=== PATIENT | female | born 1950 | race Caucasian/White ===

== ENCOUNTER 2018-03-09 06:41 | Inpatient (IN) | payer MEDICARE ==
[2018-03-06 16:54] VITALS: BMI 23.3
[2018-03-09] MEDS ORDERED: CEFAZOLIN/Water 2 GM/20 ML SYRINGE ONE (07:04)
[2018-03-09 07:19] LABS: #Basophils 0.1 thou/uL (0.0-0.2); #Eosinphils 0.2 thou/uL (0.0-0.7); #Lymphocytes 1.3 thou/uL (1.20-3.40); #Monocytes 0.7 thou/uL (0.11-0.59); #Neutrophils 4.6 thou/uL (1.40-6.50); %Basophils 0.8 % (0.0-1.0); %Eosinophils 2.3 % (0.0-10.0); %Lymphocytes 18.6 % (21.0-51.0); %Monocytes 9.7 % (0.0-10.0); %Neutrophils 68.6 % (42.0-75.0); Hemoglobin 13.1 g/dL (12.0-16.0); Mean Corpuscular HGB CONC 32.4 g/dL (32.0-36.0); Mean Corpuscular Hemoglobin 32.5 pg (27.0-31.0); Mean Platelet Volume 7.2 fL (7.4-10.4); Platelet Count 281 thou/uL (130-400); Red Blood Cell (RBC) Count 4.04 mill/uL (4.20-5.40); White Blood Cell (WBC) Count 6.8 thou/uL (4.8-10.8)
[2018-03-09 07:42] LABS: Anion Gap 12 mmol/L (10-20); BUN (Urea Nitrogen) 20 mg/dL (9.8-20.1); Calc. Creatinine Clearance 79 mL/min (70-130); Calcium 9.5 mg/dL (7.8-10.44); Carbon Dioxide 30 mmol/L (23-31); Chloride 103 mmol/L (98-107); Estimated GFR-MDRD 79; Glucose 107 mg/dL (80-115); Potassium 3.8 mmol/L (3.5-5.1); Sodium 141 mmol/L (136-145)
[2018-03-09] MEDS ORDERED: Sodium Chloride 0.9% 10 ML ONE (08:56)
[2018-03-09] MEDS ORDERED: Fentanyl 250 MCG/5 ML VIAL ONE (09:13)
[2018-03-09] MEDS ORDERED: Midazolam HCl 2 mg/2 ml Vial ONE (09:13)
[2018-03-09] MEDS ORDERED: Promethazine HCl 25 MG/ML VIAL SLOW IVP PRN (10:40)
[2018-03-09] MEDS ORDERED: HYDROmorphone 2 MG/ML VIAL SLOW IVP PRN (10:40)
[2018-03-09] MEDS ORDERED: Promethazine HCl 25 MG/ML VIAL IM PRN ×2 (10:40→14:05)
[2018-03-09] MEDS ORDERED: Ondansetron HCl/PF 4 MG/2 ML Vial IVP PRN (10:40)
[2018-03-09] MEDS ORDERED: Fentanyl 100 MCG/2 ML VIAL ONE ×2 (10:49→11:13)
--- NOTE | 2018-03-09 11:02 | OP ---
DATE OF PROCEDURE: 03/09/2018 SURGEON: Leo Sultana M.D. CERTIFIED PROSTHETIST: Asa Barfield PA-C PROCEDURE: Left L4-5 laminectomy, facetectomy, foraminotomy, interbody arthrodesis, intravertebral b iomechanical device, local morselized autograft, demineralized bone matrix, posterior lateral arthrod esis L4-5, pedicle screw instrumentation, demineralized bone matrix, and local morselized autograft. PROCEDURE IN DETAIL: The patient was brought to the operating room and intubated. She was rolled in the prone position on gel-filled chest rolls. Incision made exposing L4 and L5 and our level was co nfirmed by x-ray. We found the anticipated posterior synovial cyst which was debrided. We performed left L4-5 laminectomy, facetectomy, and foraminotomy, completely decompressed the lateral recess and the neural foramen at this level. We then debrided the intervertebral disk and the bony endplates w ere decorticated for purpose of arthrodesis. Appropriately sized intravertebral biomechanical PEEK d evice was brought into the field, filled with demineralized bone matrix, local morselized autograft, and tapped into place securely at L4-5. Next, pedicle screws were placed at left L4 and left L5 usin g lateral fluoroscopic guidance and positioning was confirmed with x-ray. Bryan was secured between th e screws, connected by nuts which were final tightened. The wound was then extensively irrigated, im maculate hemostasis was secured. Vancomycin powder was applied and the wound was closed in anatomic layers.
[2018-03-09] MEDS ORDERED: HYDROmorphone 2 MG/ML VIAL ONE (11:29)
[2018-03-09] MEDS ORDERED: PHENYLEPHRINE-NS 100 MCG/ML 10 ML SYRINGE ONE (12:29)
[2018-03-09] MEDS ORDERED: Lidocaine 1% PF 5 ML VIAL ONE (12:29)
[2018-03-09] MEDS ORDERED: PROPOFOL 200 MG/20 ML VIAL ONE (12:29)
[2018-03-09] MEDS ORDERED: Ondansetron HCl/PF 4 MG/2 ML Vial ONE (12:29)
[2018-03-09] MEDS ORDERED: Succinylcholine Chloride 20 MG/ML 10 ml SYRINGE FS ONE (12:29)
[2018-03-09] MEDS ORDERED: Glycopyrrolate 0.2 MG/ML 5 ML SYRINGE ONE (12:29)
[2018-03-09] MEDS ORDERED: Dexamethasone 20 MG/5 ML VIAL ONE (12:29)
[2018-03-09] MEDS ORDERED: Promethazine 25 MG TAB PO PRN (14:05)
[2018-03-09] MEDS ORDERED: diphenhydrAMINE 50 MG/ML VIAL IVP PRN (14:05)
[2018-03-09] MEDS ORDERED: diphenhydrAMINE 25 MG CAP PO PRN (14:05)
[2018-03-09] MEDS ORDERED: HYDROcodone/Acetaminophen 10/325 mg Tablet PO PRN ×2 (14:05)
[2018-03-09] MEDS ORDERED: Ondansetron HCl/PF 4 MG/2 ML Vial IM PRN (14:05)
[2018-03-09] MEDS ORDERED: Milk Of Magnesia 30 ML UDCUP PO PRN (14:05)
[2018-03-09] MEDS ORDERED: Mag-Al 1200 mg/1200 mg/30 ML UDCUP PO PRN (14:05)
[2018-03-09] MEDS ORDERED: traMADol HCl 50 MG TAB PO PRN (14:05)
[2018-03-09] MEDS ORDERED: Promethazine HCl 12.5 MG SUPP PR PRN (14:05)
[2018-03-09] MEDS ORDERED: Morphine 4 MG/ML VIAL SLOW IVP PRN (14:11)
[2018-03-09] MEDS ORDERED: Refresh (Polyvinyl Alcohol 1.4%/Povidone 0.6%) Opth Drops EA EYE PRN (14:14)
[2018-03-09] MEDS: Sodium Chloride 0.9% 1,000 ML IV SCH (14:26)
[2018-03-10] MEDS: Sodium Chloride 0.9% 1,000 ML IV SCH (02:36)
--- NOTE | 2018-03-10 07:00 | DIS ---
DATE OF ADMISSION: 03/09/2018 DATE OF DISCHARGE: 03/10/2018 DISCHARGE SUMMARY: Patient is a 67-year-old female status post left L4-L5 decompression and fusion, postoperative day #1. Postoperative course was complicated by some initial nausea, vomiting during h er recovery. This improved during her admission course with Zofran and Phenergan. She is now tolera ting her diet, she is voiding appropriately, and her pain is well controlled with p.o. medications. She has been up ambulating easily to the bathroom. I examined her back and her dressing remains dry. We will plan dismiss the patient home later today. I have provided prescriptions for tramadol, Jim aflex, Keflex, and Phenergan. I discussed home care and precautions. We will plan to follow up with the patient in 2 weeks in the office.
[2018-03-10] MEDS: traMADol HCl 50 MG TAB PO PRN ×2 (08:46→14:42)
[2018-03-10] MEDS: tiZANidine HCl 4 MG TAB PO PRN ×2 (08:47→14:42)
[2018-03-10] MEDS ORDERED: valACYclovir HCl 1 GM TAB PO SCH (09:00)
[2018-03-10] MEDS ORDERED: Lorazepam 0.5 MG TAB PO SCH (09:00)
[2018-03-10] MEDS ORDERED: Calcium Carbonate + Vit D 1 TAB PO SCH (09:00)
[2018-03-10] MEDS ORDERED: BIFIDOBACTERIUM PO SCH ×2 (09:00)
[2018-03-10] MEDS ORDERED: DULoxetine 30 MG CAP PO SCH (09:00)
[2018-03-10] MEDS ORDERED: valACYclovir 500 MG TAB PO SCH (09:00)
[2018-03-10] MEDS ORDERED: [UNRECOGNIZED DRUG - OTHER] PO SCH ×2 (09:00)
[2018-03-10 16:05] VITALS: BP 114/65; TEMP 98.9
== END 2018-03-10 16:35 | disposition home or self-care (01) | DRG 460 ==
LOC: SURG A 06:41 → SJJU 13:13
PROVIDERS: ADMIT Neurological Surgery; ATTEND Neurological Surgery
PROC: 0SG00AJ Fusion of Lumbar Vertebral Joint with Interbody Fusion Device, Posterior Approach, Anterior Column, Open Approach (ICD-10-PCS; principal; 2018-03-09)
DX: M43.16 Spondylolisthesis, lumbar region (principal); K21.9 Gastro-esophageal reflux disease without esophagitis; M48.061 Spinal stenosis, lumbar region without neurogenic claudication
CPT/HCPCS: 36415; 76001; 80048; 85025; 96374; A4216; C1713; C1768; J1170; J2250; J2270; J2405; J3010; J3370; J3490

== ENCOUNTER 2018-04-21 13:04 | Outpatient (CLI) | payer MEDICARE ==
--- NOTE | 2018-04-21 16:54 | CT ---
NONCONTRAST CT LUMBAR SPINE: Date: 04/21/18 HISTORY: Lumbar radiculopathy. Patient complains of low back pain with pain radiating down to left foot. TECHNIQUE: Contiguous axial CT images are obtained through the T11-12 level to the upper sacrum. Sagittal and co damon reformatted images are provided. FINDINGS: Retroperitoneal structures demonstrate a grossly normal nonenhanced CT appearance. There is no evidence of a fracture involving the lumbar spine. Postsurgical changes at the L4-5 level with unilateral left-sided pedicular screws and posterior monika transfixing this level. Intradiscal prosthesis is present at this level. Right lateral fusion mass is also noted related to postsurgical change. There is slight Grade I anter olisthesis of L4 on L5. Vertebral body heights are within normal limits. No additional level of sublu xation is present. T12-L1 Level: There is no significant disc bulge or disc herniation. Central spinal canal and neural foramina are patent. L1-2 Level: There is no significant disc bulge or disc herniation. Central spinal canal and neural f oramina are patent. There is mild lateral disc bulge which slightly encroaches on the neural foramina without significant narrowing. Central spinal canal is patent. L3-4 Level: There is mild disc osteophyte complex with facet hypertrophic changes. There is generali zed mild to moderate narrowing of the central spinal canal with minimal bilateral neural foraminal na rrowing. L4-5 Level: There is added decreased density seen in the region of the left laminotomy defect and ex tending adjacent to the thecal sac on the left which may represent post-surgical changes. There does appear to be disc osteophyte complex at this level as well. Moderate to severe narrowing of the centr al spinal canal is present. The right neural foramen is patent, but ccreased density material is seen in the region of the left neural foramen. Left nerve root is difficult to delineate from this densit y. L5-S1 Level: There is mild disc osteophyte complex. There is also a central and left paracentral dis c protrusion, which may affect the exiting left S1 nerve root. There is mild encroachment of the left neural foramen, but the right neural foramen is patent. There is no significant narrowing of the the akil sac. IMPRESSION: 1. Degenerative changes in the lumbar spine. 2. Postsurgical changes at the L4-5 level with left laminotomy. There is added decreased density see n in the region of the left laminotomy defect and extending along the left aspect of the thecal sac i nto the subarticular zone and displacing the ligamentum flavum anteriorly. Findings are likely relate d to post-operative changes, but there is also associated disc bulge at this level. The nerve root wi thin the left L4-5 neural foramen is unable to be delineated. 3. Suggestion of left paracentral disc protrusion at the L5-S1 level, which may potentially affect t he left S1 nerve root as it exits the thecal sac. POS: HECTOR
== END 2018-04-21 13:05 | disposition home or self-care (01) ==
LOC: TBSIIMAG 13:04
PROVIDERS: ATTEND Neurological Surgery
DX: M47.26 Other spondylosis with radiculopathy, lumbar region (principal); Z98.890 Other specified postprocedural states
CPT/HCPCS: 72131